=== PATIENT | male | born 1955 | race Caucasian/White ===

== ENCOUNTER 2019-09-25 16:41 | Emergency (ER) | payer BC, SELFPAY ==
[2019-09-25] MEDS ORDERED: Lisinopril 10 MG TAB ONE (17:00)
--- NOTE | 2019-09-26 12:10 | EKG ---
Test Reason : Blood Pressure : / mmHG Vent. Rate : 074 BPM Atrial Rate : 074 BPM P-R Int : 178 ms QRS Dur : 090 ms QT Int : 386 ms P-R-T Axes : 044 -26 -13 degrees QTc Int : 428 ms Normal sinus rhythm Anterior infarct , age undetermined Abnormal ECG Confirmed by DAQUAN CLAYTON ([id number]), loan expeditor JOCELYN RODRIGUEZ ([id number] on 09/26/2019 12:10:42 PM Referred By: Confirmed By:DAQUAN Earl
== END 2019-09-25 18:15 | disposition home or self-care (01) ==
LOC: ERS 16:41
DX: I10 Essential (primary) hypertension (principal); E78.5 Hyperlipidemia, unspecified; E78.00 Pure hypercholesterolemia, unspecified; F41.9 Anxiety disorder, unspecified; F42.9 Obsessive-compulsive disorder, unspecified; F17.220 Nicotine dependence, chewing tobacco, uncomplicated; Z79.899 Other long term (current) drug therapy; Z79.82 Long term (current) use of aspirin
CPT/HCPCS: 93005